=== PATIENT | female | born 1995 | race Caucasian/White ===

== ENCOUNTER → 2016-06-18 | Outpatient (CLI) | payer BC, OTHER ==
[~2016-06-18] MED LIST: PRENTAB26 PO
== END | disposition home or self-care (01) ==
LOC: C.PAPS 10:09
PROVIDERS: ATTEND Obstetrics & Gynecology
DX: Z01.419 Encounter for gynecological examination (general) (routine) without abnormal findings (principal)

== ENCOUNTER → 2016-09-10 | Outpatient (CLI) | payer BC, OTHER ==
[~2016-09-10] MED LIST changes: +NITR1CAP16 PO; +PHEN-775 PO
== END | disposition home or self-care (01) ==
LOC: C.LABPVFM 08:48
PROVIDERS: ATTEND Family Medicine
DX: J03.90 Acute tonsillitis, unspecified (principal)

== ENCOUNTER 2017-03-16 02:14 | Emergency (ER) | payer OTHER ==
[~2017-03-16] VITALS: Ht 162.6 cm; Wt 64.0 kg
[~2017-03-16 02:14] MED LIST changes: -NITR1CAP16 PO; -PHEN-775 PO
[2017-03-16 02:21] VITALS: TEMP 36.8; Ht 162.6 cm; Wt 64.0 kg
[2017-03-16] MEDS ORDERED: PHENAZOPYRIDINE HCL 200 MG TAB PO STA (02:37)
[2017-03-16 02:55] LABS: URINE APPEARANCE CLOUDY (CLEAR); URINE BILIRUBIN NEG (NEG); URINE COLOR YELLOW; URINE EPITHELIAL CELL AUTO 20-30 /lpf (0-5); URINE NITRITE NEG (NEG); URINE SPECIFIC GRAVITY 1.003 (1.000-1.030); UROBILINOGEN NEG (NEG)
[2017-03-16 02:56] LABS: MANUAL MICROSCOPIC REQUIRED? NO; REVIEW REQ? YES
[2017-03-16] MEDS ORDERED: NITROFURANTOIN MONOHYDRATE 100 MG CAP PO ONE (03:15)
[2017-03-16 03:23] VITALS: BP 120/68; PULSE 99; O2SAT 96
[2017-03-16] MEDS ORDERED: NITR1CAP16 PO (03:27)
[2017-03-16] MEDS ORDERED: PHEN-775 PO (03:27)
--- NOTE | 2017-03-16 04:01 | EMERGENCY ROOM VISIT NOTE ---
History Report prepared by David: Gabriela Tucker Under the Supervision of: Dr. Nely Lambert D.O. First contact with patient: 02:23 Chief Complaint: HEMATURIA Stated Complaint: BLOOD IN URINE,EXTREMELY PAINFUL Nursing Triage Summary: pt c/o painful urination, blood in her urine History of Present Illness The patient is a 22 year old female who presents to the Emergency Room with complaints of worsening urinary symptoms starting this morning. The patient was not feeling well 2 days ago. She did not go to class and did not drink many fluids that day. Yesterday morning she started having some dysuria which worsened throughout the day. She is now having significant pain with urination and hematuria. She thinks that she might have a UTI from not drinking enough water. She had a UTI 2 years ago. She denies any fever, chills, leg cramping or swelling, nausea, or vomiting. She has been trying to drink more water today. She denies any chance of . Her last menstrual period was 1 week ago. She denies any other medical problems. She is a executive director of nursing. Source of History: patient Onset: this morning Position: other (global) Quality: other (urinary symtpoms) Timing: worsening Associated Symptoms: No fevers, No chills, No nausea, No vomiting Note: Pt denies leg cramping/swelling. Review of Systems See HPI for pertinent positives & negatives. A total of 10 systems reviewed and were otherwise negative. Past Medical & Surgical Medical Problems: (1) 41 weeks gestation of (2) Group beta Strep positive (3) Irregular uterine contractions (4) Leakage, amniotic fluid (5) No Known Active Medical Problems (6) Uterine contractions at greater than 20 weeks of gestation Family History Cancer Diabetes mellitus Heart disease Social History Smoking Status: Current Some Day Smoker Drug Use: none Marital Status: Housing Status: lives with family Occupation Status: employed Current/Historical Medications Scheduled Nitrofurantoin Monohyd Macro (Macrobid), 100 MG PO BID Phenazopyridine Hcl (Pyridium), 1 TAB PO TID Allergies Coded Allergies: No Known Allergies (Unverified , 03/16/17) Physical Exam Vital Signs Date Time Temp Pulse Resp B/P (MAP) Pulse Ox O2 Delivery O2 Flow Rate FiO2 03/16/17 03:23 99 18 120/68 96 Room Air 03/16/17 02:21 36.8 115 18 132/81 97 Room Air Physical Exam HEENT: Head - normocephalic and atraumatic Pupils are equal, round, and reactive to light. Extraocular eye muscles are intact, and sclera are anicteric. Nose - moist nasal mucosa without discharge. Mouth - moist buccal mucosa. Oropharynx is nonerythematous and there is no tonsillar exudate or edema noted. Neck: Supple; no cervical lymphadenopathy. Heart: Regular rate and rhythm. There is a normal S1 and S2 with no murmurs, clicks, or gallops appreciated. Lungs: Clear to auscultation bilaterally with no wheezes, rales, or rhonchi. Abdomen: Soft, completely nontender, nondistended, with good bowel sounds. There are no palpable pulsatile masses or hepatosplenomegaly. There is no guarding, rigidity, or rebound noted. Extremities: No evidence of cyanosis, clubbing, or edema. There are easily palpable peripheral pulses. Skin: warm and dry with good turgor and no rashes. Medical Decision & Procedures Laboratory Results Test 03/16/17 02:30 Urine Color YELLOW Urine Appearance CLOUDY (CLEAR) Urine pH 8.0 (4.5-7.5) Urine Specific [employer] 1.003 (1.000-1.030) Urine Protein NEG (NEG) Urine Glucose (UA) NEG (NEG) Urine Ketones NEG (NEG) Urine Occult Blood 3+ (NEG) Urine Nitrite NEG (NEG) Urine Bilirubin NEG (NEG) Urine Urobilinogen NEG (NEG) Urine Leukocyte Esterase LARGE (NEG) Urine WBC (Auto) >30 /hpf (0-5) Urine RBC (Auto) 0-4 /hpf (0-4) Urine Hyaline Casts (Auto) 0 /lpf (0-5) Urine Epithelial Cells (Auto) 20-30 /lpf (0-5) Urine Bacteria (Auto) 1+ (NEG) Urine Pathogenic Casts /lpf (0) Urine Test NEG (NEG) Laboratory results per my review. Medications Administered Medications (Trade) Dose Ordered Sig/[place] Route Start Time Stop Time Status Last Admin Dose Admin Phenazopyridine HCl (Pyridium Tab) 200 mg NOW STAT PO 03/16/17 02:37 03/16/17 02:38 DC 03/16/17 02:42 200 MG Nitrofurantoin Macrocrystals (Macrobid Cap) 100 mg ONE ONCE PO 03/16/17 03:15 03/16/17 03:16 DC 03/16/17 03:31 100 MG Procedure Medications: Pyridium Tab 200 mg PO, Macrobid Cap 100 mg PO. ED Course 0233: The patient was evaluated in room A4B. A complete history and physical examination were performed. Nursing notes and previous electronic medical records were reviewed. 0237: Pyridium Tab 200 mg PO. 0315: Macrobid Cap 100 mg PO. 0328: Upon reevaluation, she is resting comfortably. I discussed findings and results with her. She verbalized agreement of the treatment plan. She was discharged home. Medical Decision The patient is a 22 year old female who presents to the ED with urinary symptoms. Differential diagnosis includes hemorrhagic cystitis, pyelonephritis, kidney stone. Labs: negative, 3+ blood, >30 WBC, 1+ bacteria, large leukocyte esterase. This is a 22-year-old female patient presents to the emergency department with hematuria and urgency. Urinalysis reveals signs of infection. Patient was treated with Pyridium and Macrobid. The urine will be sent for culture. She was encouraged to take plenty of clear liquids. I'll prescribe Macrobid twice a day for the next 5 days and Pyridium 3 times a day for the next 2 days. She was told to return to the emergency department if she got any worsening symptoms. Medication Reconcilliation Current Medication List: was personally reviewed by me Blood Pressure Screening Patient's blood pressure: Normal blood pressure Blood pressure disposition: Did not require urgent referral Impression Primary Impression: Hemorrhagic cystitis Scribe Attestation The scribe's documentation has been prepared under my direction and personally reviewed by me in its entirety. I confirm that the note above accurately reflects all work, treatment, procedures, and medical decision making performed by me. Departure Information Dispostion Home / Self-Care Prescriptions Phenazopyridine Hcl (PYRIDIUM) 200 Mg Tab 1 TAB PO TID for 2 Days, #6 TAB Prov: Nely Lambert D.O. 03/16/17 Nitrofurantoin Monohyd Macro (MACROBID) 100 Mg Cap 100 MG PO BID, #10 CAP Prov: Nely Lambert D.O. 03/16/17 Referrals Leonardo Rodriguez M.D. (PCP) Forms HOME CARE DOCUMENTATION FORM, IMPORTANT VISIT INFORMATION, WORK / SCHOOL INSTRUCTIONS Patient Instructions ED UTI Cystitis Female, My [facility] Additional Instructions Rest. take plenty of clear liquids Macrobid - 1 tab. every 12 hours. Pyridium - 1 tab. every 8 hours for 2 days
== END 2017-03-16 03:32 | disposition home or self-care (01) ==
LOC: C.EDB 02:15 → C.EDA 03:32
DX: N30.91 Cystitis, unspecified with hematuria (principal); F17.200 Nicotine dependence, unspecified, uncomplicated; Z83.3 Family history of diabetes mellitus; Z82.49 Family history of ischemic heart disease and other diseases of the circulatory system

== ENCOUNTER → 2017-08-11 | Outpatient (CLI) | payer OTHER | END | disposition home or self-care (01) | LOC: C.LABSPEC 11:07 | PROVIDERS: ATTEND Physician Assistant | DX: Z12.4 Encounter for screening for malignant neoplasm of cervix (principal) ==

== ENCOUNTER → 2017-08-11 | Outpatient (CLI) | payer OTHER | END | disposition home or self-care (01) | LOC: C.PAPS 11:19 | PROVIDERS: ATTEND Family Medicine | DX: Z12.4 Encounter for screening for malignant neoplasm of cervix (principal) ==

== ENCOUNTER → 2017-12-10 | Outpatient (CLI) | payer OTHER | END | disposition home or self-care (01) | LOC: C.LABSPEC 14:57 | PROVIDERS: ATTEND Obstetrics & Gynecology | DX: Z34.81 Encounter for supervision of other normal pregnancy, first trimester (principal) ==

== ENCOUNTER → 2017-12-15 | Outpatient (CLI) | payer OTHER ==
[2017-12-15 14:52] LABS: BASO % 0.1 %; BASO ABS # 0.01 K/uL (0-0.2); EOS % 3.4 %; EOS ABS # 0.32 K/uL (0-0.5); HEMATOCRIT 37.7 % (37-47); HEMOGLOBIN 12.7 g/dL (12.0-16.0); IG# 0.02 K/uL (0.00-0.02); LYMPH % 20.4 %; MEAN CELL VOLUME 86.5 fL (80-100); MEAN CORPUSCULAR HEMOGLOBIN 29.1 pg (25-34); MEAN CORPUSCULAR HGB CONC 33.7 g/dl (32-36); MEAN PLATELET VOLUME 9.7 fL (7.4-10.4); MONO % 12.7 %; MONO ABS # 1.18 K/uL (0.11-0.59); NEUT % 63.2 %; NEUT ABS # 5.89 K/uL (1.4-6.5); PLATELET COUNT 326 K/uL (130-400); RED CELL DISTRIBUTION WIDTH CV 13.6 % (11.5-14.5); RED CELL DISTRIBUTION WIDTH SD 43.6 fL (36.4-46.3); WHITE BLOOD COUNT 9.32 K/uL (4.8-10.8)
== END | disposition home or self-care (01) ==
LOC: C.LAB1850 12:41
PROVIDERS: ATTEND Obstetrics & Gynecology
DX: Z34.81 Encounter for supervision of other normal pregnancy, first trimester (principal)

== ENCOUNTER → 2017-12-15 | Outpatient (CLI) | payer OTHER | END | disposition home or self-care (01) | LOC: C.LABSPEC 15:59 | PROVIDERS: ATTEND Obstetrics & Gynecology | DX: Z34.81 Encounter for supervision of other normal pregnancy, first trimester (principal) ==

== ENCOUNTER 2018-07-19 01:29 | Inpatient (IN) ==
[2018-07-19] MEDS ORDERED: LACTATED RINGER'S 1,000 ML IV PRN ×2 (04:37→06:15)
[2018-07-19] MEDS ORDERED: OXYTOCIN 30 UNITS/500 ML BAG IV PRN ×2 (04:37→09:45)
[2018-07-19] MEDS ORDERED: LACTATED RINGER'S 1,000 ML IV SCH (04:45)
[2018-07-19] MEDS ORDERED: fentaNYL citrate 100 MCG/2 ML VIAL ONE (04:55)
[2018-07-19] MEDS ORDERED: BUPIVACAINE 0.25% 30 ML VIAL ONE (04:55)
[2018-07-19] MEDS ORDERED: ePHEDrine sulfate 50 MG/ML AMP ONE (04:55)
[2018-07-19] MEDS ORDERED: fentaNYL 2MCG/ML ROPIV 1.25MG/ML 100 ML BAG EPI ONE (04:56)
[2018-07-19 04:58] LABS: Hemoglobin 10.2 g/dL (12.0-16.0); Mean Corpuscular Volume 79.4 fL (80-100); Mean Platelet Volume 9.4 fL (7.4-10.4); Platelet Count 306 K/uL (130-400); RDW Coefficient of Variation 13.6 % (11.5-14.5); RDW Standard Deviation 39.2 fL (36.4-46.3); Red Blood Count 4.03 M/uL (4.2-5.4); White Blood Count 14.82 K/uL (4.8-10.8)
[2018-07-19 05:21] LABS: Mean Corpuscular Hgb Conc 31.9 g/dL (32-36)
--- NOTE | 2018-07-19 06:11 | Anesthesiology Consultation ---
Date of Service July 19, 2018 Assessment & Plan (1) Encounter for pre-operative examination: Chart Review Chart Review: Acceptable Risk for Surgery and Patient NOT seen in Pre Admission Testing Consults Requested none ASA ASA2 Proposed Anesthesia Anesthesia Type: Labor Epidural History Height/Weight Height: 5 ft 6 in Weight: 77.564 kg Allergies Allergy/AdvReac Type Severity Reaction Status Date / Time No Known Allergies Allergy Unverified 03/16/17 03:32 Medications Active Medications Generic Name Dose Route Start Last Admin Trade Name Freq PRN Reason Stop Dose Admin Lactated Ringer's 1,000 mls @ 999 mls/hr 07/19/18 04:37 07/19/18 04:53 Lr IV 08/18/18 04:36 999 mls/hr .Q1H1M PRN Administration (Pre-Anesthesia) Lactated Ringer's 1,000 mls @ 125 mls/hr 07/19/18 04:45 07/19/18 05:51 Lr IV 07/21/18 04:44 125 mls/hr .Q8H [place] Administration Past Medical History Medical History Migraines UTI (urinary tract infection) [place] teeth removed Social History Smoking Status: Never smoker Hx Alcohol Use: No Hx Substance Use: No Physical Exam Vital Signs Last Vital Signs Temp 36.8 C 07/19/18 06:02 Pulse 103 H 07/19/18 06:09 Resp 20 07/19/18 06:02 BP 111/68 07/19/18 06:08 Pulse Ox 100 07/19/18 06:09 Testing Laboratory Results 07/19/18 04:50
[2018-07-19] MEDS ORDERED: NALBUPHINE HCL INJ 10 MG/ML AMP IV PRN (06:15)
[2018-07-19] MEDS ORDERED: ONDANSETRON INJ 2 MG/ML 2 ML VIAL IV PRN (06:15)
[2018-07-19] MEDS ORDERED: ePHEDrine sulfate 50 MG/ML AMP IV PRN (06:15)
[2018-07-19] MEDS ORDERED: NALOXONE HCL 1 MG in SODIUM CHLORIDE 0.9% 1000ML 1,000 ML IV PRN (06:15)
[2018-07-19] MEDS ORDERED: DiphenhydrAMINE HCL 50 MG/ML VIAL IV PRN (06:15)
[2018-07-19] MEDS ORDERED: NALOXONE HCL 0.4 MG/1 ML VIAL/CARP IV PRN (06:15)
[2018-07-19] MEDS ORDERED: fentaNYL 2MCG/ML ROPIV 1.25MG/ML 100 ML BAG EPI PRN (06:15)
--- NOTE | 2018-07-19 08:10 | History & Physical Report ---
Date of Service July 19, 2018 38 weeks gestation with spontaneous labor she is now 4 cm patient has requested and received epidural she is group B strep negative this is her second baby AROM is performed clear fluid contractions are adequate patient comfortable heart rate category 1 History of Present Illness Primary Care Provider: Leonardo Rodriguez MD Allergies Allergy/AdvReac Type Severity Reaction Status Date / Time No Known Allergies Allergy Unverified 03/16/17 03:32 Patient History Medical History Migraines UTI (urinary tract infection) [place] teeth removed Social History Preferred Language: [place] Communication Ability: Effective Account Service Associate Required: No Beliefs That Will Affect Care: None marital status: Current Living Situation: Family Other Information That Helps Us Care for You: No Feels Safe at Home: Yes Safety Concerns: Feels Safe At This Time Smoking Status: Never smoker Hx Alcohol Use: No Hx Substance Use: No Physical Exam Vital Signs (Past 24 Hours): Last Vital Signs Temp 36.8 C 07/19/18 06:02 Pulse 102 H 07/19/18 08:04 Resp 20 07/19/18 06:30 BP 110/65 07/19/18 08:03 Pulse Ox 100 07/19/18 08:04
[2018-07-19] MEDS ORDERED: OXYCODONE/ACETAMINOPHEN 5mg/325mg TAB PO PRN (09:45)
[2018-07-19] MEDS ORDERED: BENZOCAINE 20% AER SPR 82.5 GM CAN EXT PRN (09:45)
[2018-07-19] MEDS ORDERED: ACETAMINOPHEN 325 MG TAB PO PRN (09:45)
[2018-07-19] MEDS ORDERED: SUPERCREAM 0.870% 15 GM JAR EXT PRN (09:45)
[2018-07-19] MEDS ORDERED: BISACODYL 10 MG SUPP PR PRN (09:45)
[2018-07-19] MEDS ORDERED: HYDROCORTISONE ACETATE 25 MG SUPP PR PRN (09:45)
[2018-07-19] MEDS ORDERED: DIPHTHERIA/TETANUS/PERTUSSIS 0.5 ML SYR/VIAL IM ONE (09:45)
--- NOTE | 2018-07-19 09:45 | Procedure Note ---
Vaginal Delivery Summary Date of Service July 19, 2018 Spontaneous vaginal delivery in occiput anterior position fluid was clear no nuchal cord baby delivered head mouth and then nares suctioned with bulb gentle traction no excessive force use live vigorous female infant cord clamped and cut cord blood obtained placenta removed with gentle traction IV Pitocin started there was no tearing hemostasis improved with oxytocin sponge and instrument counts were correct estimated blood loss 150 mL
--- NOTE | 2018-07-19 10:42 | Anesthesia Procedure Note ---
Date of Service July 19, 2018 Anesthesia Post Epidural Note Vital Signs Vital Signs: Temp Pulse Resp BP Pulse Ox 36.8 C 112 H 20 121/58 L 100 07/19/18 08:44 07/19/18 10:39 07/19/18 08:44 07/19/18 10:39 07/19/18 09:39 Notes Mental Status: alert / awake / arousable Patient Amnestic to Procedure: No Nausea / Vomiting: adequately controlled Pain: adequately controlled Airway Patency, RR, SpO2: stable & adequate BP & HR: stable & adequate Hydration State: stable & adequate Neuraxial Anesthesia: was administered and sensory block is resolving Anesthetic Complications: no major complications apparent and Pt Satisfied with anesthetic care Epidural: Removed without complications and With tip intact
[2018-07-19] MEDS: IBUPROFEN 600 MG TAB PO PRN (19:48)
[2018-07-19] MEDS: DOCUSATE SODIUM 100 MG CAP PO SCH (21:25)
[2018-07-20] MEDS: IBUPROFEN 600 MG TAB PO PRN ×3 (00:28→13:07)
--- NOTE | 2018-07-20 07:26 | Obstetrical Progress Note ---
Date of Service July 20, 2018 day 2 patient is well minimal bleeding ambulating well no extremity pain Assessment & Plan (1) Encounter for pre-operative examination: Home Physical Exam Vital Signs (Past 24 Hours) Last Vital Signs Temp 36.5 C 07/20/18 03:30 Pulse 83 07/20/18 03:30 Resp 18 07/20/18 03:30 BP 120/75 07/20/18 03:30 Pulse Ox 97 07/20/18 03:30 Uterus is firm nontender extremity exam negative
[2018-07-20] MEDS: DOCUSATE SODIUM 100 MG CAP PO SCH (08:05)
[2018-07-20 08:46] LABS: Hematocrit (blood only) 29.9 % (37-47); Hemoglobin 9.5 g/dL (12.0-16.0); Mean Corpuscular Hgb Conc 31.8 g/dL (32-36); Mean Corpuscular Volume 79.5 fL (80-100); Mean Platelet Volume 9.5 fL (7.4-10.4); Platelet Count 239 K/uL (130-400); RDW Coefficient of Variation 13.8 % (11.5-14.5); RDW Standard Deviation 39.9 fL (36.4-46.3); Red Blood Count 3.76 M/uL (4.2-5.4); White Blood Count 9.98 K/uL (4.8-10.8)
[2018-07-20] MEDS ORDERED: PRENATAL VITAMIN 1 TAB PO SCH (09:00)
[2018-07-20] MEDS ORDERED: BISACODYL 5 MG TABEC PO SCH (20:00)
== END 2018-07-20 14:40 | disposition home or self-care (01) | DRG 807 ==
LOC: OPB 01:29 → 4S1 01:31 → 4S2 13:38